=== PATIENT | male | born 1930 | race Caucasian/White ===

== ENCOUNTER 2019-01-30 09:30 | Outpatient (CLI) | payer MEDICARE, BC ==
[~2019-01-30 09:30] MED LIST: ACET325T14 PO; LEVO125C2 PO; LEVO125T5 PO; OMEP-110 PO; SULI200T2 PO; TAMS-11 PO; VITAMIN B6 PO; VITAMIN C PO; VITAMIN D PO
== END 2019-01-30 23:59 | disposition home or self-care (01) ==
LOC: CFH 09:30
PROVIDERS: ATTEND Internal Medicine Cardiovascular Disease
DX: I08.8 Other rheumatic multiple valve diseases (principal); E78.5 Hyperlipidemia, unspecified
CPT/HCPCS: 93306

== ENCOUNTER 2019-11-05 11:15 | Emergency (ER) | payer MEDICARE, BC ==
[~2019-11-05] VITALS: Ht 188 cm; Wt 84.5 kg
[2019-11-05 11:17] VITALS: BP 100/59
[2019-11-05 12:19] LABS: RAPID INFLUENZA A POSITIVE (Negative); RAPID INFLUENZA B Negative (Negative)
== END 2019-11-05 12:55 | disposition home or self-care (01) ==
LOC: ED 12:45
DX: J10.1 Influenza due to other identified influenza virus with other respiratory manifestations (principal); E03.9 Hypothyroidism, unspecified
CPT/HCPCS: 71046; 87400; 99284